=== PATIENT | female | born 1970 | race African-American/Black ===

== ENCOUNTER 2019-06-15 10:55 | Inpatient (IN) | payer OTHER, MEDICAID ==
[~2019-06-15] VITALS: Ht 167.6 cm; Wt 83.5 kg
[2019-06-15] VITALS (14 sets, daily range): BP systolic 115–161; BP diastolic 64–98
[2019-06-15 11:51] LABS: BASOPHILS % 0.4 % (0.0-2.0); EOSINOPHILS % 0.7 % (0.0-5.0); HEMATOCRIT. 38.6 % (36.0-48.0); HEMOGLOBIN. 12.8 g/dL (12.0-16.0); LYMPHOCYTES % 11.1 % (20.0-50.0); MEAN CORPUSCULAR HEMOGLOBIN 29.1 pg (28.0-32.0); MEAN PLATELET VOLUME 8.1 fl (7.4-10.4); MONOCYTES % 3.5 % (2.0-8.0); NEUTROPHILS % 84.3 % (40.0-76.0); PLATELET 348 x1000/uL (130-400); RED BLOOD CELL COUNT 4.39 mill/uL (4.2-5.4); RED CELL DISTRIBUTION WIDTH 16.2 % (11.6-14.6)
[2019-06-15 11:53] LABS: CHLORIDE 106 mEq/L (98-107)
[2019-06-15] MEDS ORDERED: MORPHINE SULFATE 4 MG/ML CPJ (NOT FOR IM USE) IV ONE (12:15)
[2019-06-15] MEDS ORDERED: LIDOCAINE HCL 1% 20ML VIAL (Pyxis) INJ ONE (12:30)
[2019-06-15] MEDS: SODIUM CHLORIDE 0.45% 1,000 ML IV SCH (12:30)
[2019-06-15] MEDS ORDERED: FENTANYL CITRATE/PF 50MCG/ML 2ML VIAL ONE (12:30)
[2019-06-15] MEDS ORDERED: IODIXANOL 320MG/ML 100 ML BOTTLE IV ONE (12:30)
[2019-06-15] MEDS ORDERED: MIDAZOLAM HCL 2 MG/2 ML VIAL ONE (12:30)
[2019-06-15] MEDS ORDERED: ONDANSETRON HCL 4MG/2ML INJ IV PRN (12:45)
[2019-06-15] MEDS ORDERED: IODIXANOL 320MG/ML 200ML BOTTLE ONE (13:13)
[2019-06-15] MEDS ORDERED: ATROPINE SULFATE 0.1MG/ML 10ML DISP.SYRIN ONE (13:16)
[2019-06-15] MEDS ORDERED: EPTIFIBATIDE 2 MG/ML 10ML VIAL IV ONE (13:30)
[2019-06-15] MEDS ORDERED: EPTIFIBATIDE 100 ML IV ONE (13:30)
[2019-06-15] MEDS ORDERED: ASPIRIN 325MG EC TABLET PO ONE (13:35)
[2019-06-15] MEDS ORDERED: TICAGRELOR 90 MG TABLET PO ONE (13:35)
[2019-06-15] MEDS ORDERED: ATROPINE SULFATE 1MG/10ML SYR IV PRN (14:00)
[2019-06-15] MEDS ORDERED: HEPARIN SODIUM 1,000 UNIT/1ML VIAL IV ONE (14:45)
[2019-06-15] MEDS ORDERED: NITROGLYCERIN 50MCG/ML 10ML VIAL (CATH LAB) IV ONE (14:45)
[2019-06-15] MEDS ORDERED: NICARDIPINE 100MCG/ML 10ML VIAL (CATH LAB) IV ONE (14:45)
[2019-06-15] MEDS: ONDANSETRON HCL 4MG/2ML INJ IV PRN ×2 (15:54→19:27)
[2019-06-15] MEDS: MORPHINE SULFATE 2 MG/ML CPJ (NOT FOR IM USE) IV PRN ×3 (16:02→23:42)
[2019-06-15] MEDS: NITROGLYCERIN OINT 1GM/INCH UDPKT TD SCH ×2 (16:06→21:28)
[2019-06-15 16:26] LABS: *AMPHETAMINES SCREEN URINE NEGATIVE (NEGATIVE); *BARBITURATES SCREEN URINE NEGATIVE (NEGATIVE); *BENZODIAZEPINES SCREEN URINE PRESUMTIVE POSITIVE (NEGATIVE); *COCAINE SCREEN URINE PRESUMTIVE POSITIVE (NEGATIVE)
[2019-06-15 16:27] LABS: CANNABINOID URINE SCREEN PRESUMTIVE POSITIVE (NEGATIVE); METHADONE URINE SCREEN NEGATIVE (NEGATIVE); OPIATES URINE SCREEN PRESUMTIVE POSITIVE (NEGATIVE); PHENCYCLIDINE URINE SCREEN NEGATIVE (NEGATIVE)
[2019-06-15] MEDS: TICAGRELOR 90 MG TABLET PO SCH (16:53)
[2019-06-15] MEDS: ACETAMINOPHEN 325MG TABLET PO PRN (22:45)
[2019-06-16] VITALS (20 sets, daily range): BP systolic 90–142; BP diastolic 56–103
[2019-06-16] MEDS: SODIUM CHLORIDE 0.45% 1,000 ML IV SCH ×2 (00:38→12:59)
[2019-06-16] MEDS: NITROGLYCERIN OINT 1GM/INCH UDPKT TD SCH ×3 (05:00→22:56)
[2019-06-16 05:35] LABS: BASOPHILS % 0.3 % (0.0-2.0); EOSINOPHILS % 0.1 % (0.0-5.0); HEMOGLOBIN. 11.4 g/dL (12.0-16.0); LYMPHOCYTES % 20.3 % (20.0-50.0); MEAN CORPUSCULAR HEMOGLOBIN 29.6 pg (28.0-32.0); MEAN CORPUSCULAR VOLUME 88.3 fL (81.0-99.0); MONOCYTES % 10.7 % (2.0-8.0); NEUTROPHILS % 68.6 % (40.0-76.0); PLATELET 341 x1000/uL (130-400); RED BLOOD CELL COUNT 3.85 mill/uL (4.2-5.4); RED CELL DISTRIBUTION WIDTH 15.7 % (11.6-14.6)
[2019-06-16 05:40] LABS: CHLORIDE 104 mEq/L (98-107)
[2019-06-16 05:47] LABS: LDL CHOLESTEROL 159 mg/dL (5-100)
[2019-06-16 05:51] LABS: HDL CHOLESTEROL 42 mg/dL (40-59)
[2019-06-16] MEDS ORDERED: POTASSIUM CHLORIDE 20MEQ TABLET SR PO NR (08:45)
[2019-06-16] MEDS: ACETAMINOPHEN 325MG TABLET PO PRN ×2 (08:56→20:55)
[2019-06-16] MEDS: ASPIRIN 325MG TABLET PO SCH (08:56)
[2019-06-16] MEDS: TICAGRELOR 90 MG TABLET PO SCH ×2 (08:57→17:25)
[2019-06-16] MEDS ORDERED: MAGNESIUM/ALUMINUM HYDROXIDE/SIMETHICONE 30ML UDC PO PRN (13:00)
[2019-06-16] MEDS: MORPHINE SULFATE 2 MG/ML CPJ (NOT FOR IM USE) IV PRN ×2 (15:34→20:53)
[2019-06-16] MEDS ORDERED: ATORVASTATIN CALCIUM 40MG TABLET PO SCH (21:00)
[2019-06-17] VITALS (8 sets, daily range): BP systolic 102–149; BP diastolic 32–91
[2019-06-17] MEDS: MORPHINE SULFATE 2 MG/ML CPJ (NOT FOR IM USE) IV PRN (03:14)
[2019-06-17] MEDS: NITROGLYCERIN OINT 1GM/INCH UDPKT TD SCH (06:01)
[2019-06-17] MEDS: SODIUM CHLORIDE 0.45% 1,000 ML IV SCH (06:16)
[2019-06-17 07:29] LABS: BASOPHILS % 0.4 % (0.0-2.0); CHLORIDE 107 mEq/L (98-107); EOSINOPHILS % 0.2 % (0.0-5.0); HEMATOCRIT. 32.8 % (36.0-48.0); HEMOGLOBIN. 10.8 g/dL (12.0-16.0); LYMPHOCYTES % 23.5 % (20.0-50.0); MEAN CORPUSCULAR HEMOGLOBIN 29.1 pg (28.0-32.0); MONOCYTES % 11.2 % (2.0-8.0); NEUTROPHILS % 64.7 % (40.0-76.0); PLATELET 322 x1000/uL (130-400); RED BLOOD CELL COUNT 3.73 mill/uL (4.2-5.4); RED CELL DISTRIBUTION WIDTH 15.6 % (11.6-14.6)
[2019-06-17] MEDS: TICAGRELOR 90 MG TABLET PO SCH (08:12)
[2019-06-17] MEDS: ASPIRIN 325MG TABLET PO SCH (08:12)
[2019-06-17] MEDS: ACETAMINOPHEN 325MG TABLET PO PRN (08:13)
== END 2019-06-17 12:05 | disposition home or self-care (01) | DRG 174 ==
LOC: ER 10:55 → CVICU 12:14 → ENRESERV 12:28 → 5EST 06-16 13:15
PROVIDERS: ADMIT Hospitalist; ATTEND Hospitalist
PROC: 02703DZ Dilation of Coronary Artery, One Artery with Intraluminal Device, Percutaneous Approach (ICD-10-PCS; principal; 2019-06-15)
PROC: 4A023N7 Measurement of Cardiac Sampling and Pressure, Left Heart, Percutaneous Approach (ICD-10-PCS; 2019-06-15)
PROC: B211YZZ Fluoroscopy of Multiple Coronary Arteries using Other Contrast (ICD-10-PCS; 2019-06-15)
PROC: B215YZZ Fluoroscopy of Left Heart using Other Contrast (ICD-10-PCS; 2019-06-15)
PROC: 02703ZZ Dilation of Coronary Artery, One Artery, Percutaneous Approach (ICD-10-PCS; 2019-06-15)
DX: I21.4 Non-ST elevation (NSTEMI) myocardial infarction (principal); K50.90 Crohn's disease, unspecified, without complications; E78.5 Hyperlipidemia, unspecified; F10.10 Alcohol abuse, uncomplicated; Y90.9 Presence of alcohol in blood, level not specified; F12.90 Cannabis use, unspecified, uncomplicated; F17.200 Nicotine dependence, unspecified, uncomplicated; I10 Essential (primary) hypertension; I25.110 Atherosclerotic heart disease of native coronary artery with unstable angina pectoris; Z82.3 Family history of stroke; Z82.49 Family history of ischemic heart disease and other diseases of the circulatory system; Z90.710 Acquired absence of both cervix and uterus
CPT/HCPCS: 36415; 71045; 80048; 80061; 80305; 83880; 84484; 85347; 92928; 93005; 93306; 93458; 99291; C1725; C1769; C1876; C1887; C1893; J0461; J1327; J1644; J2250; J2270; J2405; J3010; J3490; Q9967; J8499